=== PATIENT | female | born 1970 | race Caucasian/White ===

== ENCOUNTER → 2020-06-28 | Outpatient (CLI) | payer BC | LOC: CT 06-26 14:30 | DX: R91.1 Solitary pulmonary nodule (principal) | CPT/HCPCS: 71270; Q9963 ==

== ENCOUNTER 2021-01-20 18:26 | Emergency (ER) | payer BC ==
[2021-01-20 19:55] LABS: HEMOGLOBIN 13.4 gm/dl (12.3-15.3); RED BLOOD COUNT 4.63 M/UL (4.00-5.10); WHITE BLOOD COUNT 5.9 K/UL (4.5-11.0)
[2021-01-20 20:24] LABS: BUN/CREATININE RATIO 24 (0-10)
[2021-01-20] MEDS ORDERED: LEVOFLOXACIN500 MG PO (23:32)
[2021-01-20] MEDS ORDERED: FLORANEX TABLE1 EACH PO (23:32)
== END 2021-01-20 23:45 | disposition home or self-care (01) ==
LOC: ER1 18:26
PROVIDERS: Physician Assistant
DX: K52.9 Noninfective gastroenteritis and colitis, unspecified (principal); Z79.899 Other long term (current) drug therapy; G43.909 Migraine, unspecified, not intractable, without status migrainosus; M35.00 Sjogren syndrome, unspecified; K92.1 Melena
CPT/HCPCS: 80053; 81001; 83690; 85025; 99284; Q9967

== ENCOUNTER → 2021-04-08 | Outpatient (CLI) | payer BC ==
[~2021-04-08] MED LIST: FLORANEX TABLE1 EACH PO; LEVOFLOXACIN500 MG PO
== END ==
LOC: LAB 14:05
DX: R10.11 Right upper quadrant pain (principal)
CPT/HCPCS: 36415; 81001